=== PATIENT | male | born 2000 ===

== ENCOUNTER 2023-10-12 11:25 | Emergency (ER) | payer SELFPAY | END 2023-10-12 13:14 | disposition home or self-care (01) | LOC: JP.ED 11:25 | DX: S92.421A Displaced fracture of distal phalanx of right great toe, initial encounter for closed fracture (principal); S92.531A Displaced fracture of distal phalanx of right lesser toe(s), initial encounter for closed fracture | CPT/HCPCS: 73630-RT; 99283 ==